=== PATIENT | male | born 1990 | race African-American/Black ===

== ENCOUNTER 2017-10-10 13:33 | Emergency (ER) | payer OTHER ==
[~2017-10-10] VITALS: Ht 182.9 cm; Wt 61.2 kg
[2017-10-10 16:51] LABS: ABSOLUTE NEUTROPHILS 4.5 thou/uL (1.4-8.2); BASOPHILS 0.4 % (0.0-2.0); EOSINOPHILS 0.8 % (0.0-3.0); HEMATOCRIT 34.9 % (42.0-52.0); HEMOGLOBIN 11.4 gm/dL (14.0-18.0); LYMPHOCYTES 9.2 % (24.0-44.0); MCH 22.1 pg (26.0-34.0); MCHC 32.8 g/dL (28.0-37.0); MCV 67.2 fL (80.0-100.0); MONOCYTES 10.5 % (1.0-8.0); PLATELET COUNT 317 thou/uL (150-400); POLYS 79.1 % (36.0-66.0); RBC 5.19 mil/uL (4.50-6.00); WBC 5.7 thou/uL (4.0-11.0)
[2017-10-10 17:03] LABS: CALCIUM 9.6 mg/dL (8.5-10.1); POTASSIUM 3.7 mmol/L (3.5-5.1)
[2017-10-10 17:09] LABS: ALBUMIN 3.2 g/dL (3.4-5.0); DIRECT BILIRUBIN 0.1 mg/dL (<0.1-0.3); MAGNESIUM 1.9 mg/dL (1.8-2.4); TOTAL BILIRUBIN 0.4 mg/dL (<0.1-1.0); TOTAL PROTEIN 8.6 g/dL (6.4-8.2)
[2017-10-10 17:30] LABS: URINE BLOOD NEGATIVE (Negative); URINE CLARITY CLEAR; URINE COLOR YELLOW; URINE GLUCOSE-RANDOM* NEGATIVE (Negative); URINE KETONES 1+ (Negative); URINE LEUKOCYTES-REFLEX NEGATIVE (Negative); URINE PROTEIN (DIPSTICK) TRACE (Negative); URINE UROBILINOGEN 0.2 E.U./dl (0.2-1.0)
[2017-10-10 17:35] LABS: URINE NITRITE-REFLEX POSITIVE (Negative)
[2017-10-10 17:36] LABS: ICTOTEST (BILI CONFIRMATORY) Negative (Negative); URINE BILIRUBIN NEGATIVE (Negative)
[2017-10-10 17:43] LABS: BACTERIA-REFLEX 1-9 Few /HPF (None Seen); CASTS None Seen /LPF (None Seen); CRYSTALS None Seen /LPF (None Seen); SQUAMOUS None Seen /LPF (0-3); URINE WBC-REFLEX None Seen /HPF (0-5)
[2017-10-10 17:44] LABS: URINE RBC None Seen /HPF (0-2)
[2017-10-10] MEDS ORDERED: KEFLEX500 M1 PO (17:50)
[2017-10-10 19:00] VITALS: BP 116/72
== END 2017-10-10 18:53 | disposition home or self-care (01) ==
LOC: ER 13:33
PROVIDERS: Emergency Medicine
DX: N39.0 Urinary tract infection, site not specified (principal); R11.2 Nausea with vomiting, unspecified; Z91.010 Allergy to peanuts

== ENCOUNTER 2017-10-13 18:52 | Inpatient (IN) | payer OTHER ==
[~2017-10-13] VITALS: Ht 182.9 cm; Wt 63.5 kg
--- NOTE | ~2017-10-13 | PATH ---
[facility] [place] [address] PATHOLOGY RPT PROCEDURE Name: CORINA CARRILLO Room #: 410-P ADM IN M.R.#: [id number] Admission: 10/13/17 Date of : 89 Discharge: Report #: [id number] Path Case #: [id number] [facility] Accession Number: [id number] . 01 Material submitted: . PART A: BX DUODENUM R/O CELIAC PART B: BX SIGMOID STRICTURE . 01 Clinical history: . Pre-OP DX: Crohn's possible Post-OP DX: Sigmoid stricture . 02 Diagnosis: A. Small bowel, duodenum rule out sprue, endoscopic biopsy: - No significant diagnostic abnormalities present. - Negative for villous blunting or increase in intraepithelial lymphocytes. . B. Large intestinal mucosa, "sigmoid stricture", endoscopic biopsy: - Moderate active colitis (please see comment). - Negative for dysplasia or malignancy. LBQ/10/19/2017 . 02 Comment: Sections of the colonic mucosa designated "sigmoid stricture" show foci of cryptitis along with a markedly cellular lamina propria composed predominantly of lymphocytes and plasma cells and occasional eosinophils. Surface ulceration is present focally. There are no crypt abscesses, granulomas or viral inclusions. The process affects all the fragments with a similar intensity. Given the description, the differential diagnosis includes acute colitis of self-limited nature, acute colitis of infectious etiology, and inflammatory bowel disease, acute diverticulitis, as well as acute colitis due to medications. Architectural abnormalities are not identified. Please correlate with clinical as well as endoscopic findings. (IUV:db; 10/19/2017) . 02 Electronically signed: . Ariana Taveras MD, Pathologist NPI- [id number] . 01 Gross description: . A. Received in formalin labeled "Corina Carrillo, BX duodenum, rule out celiac," are 2 segments of hdez soft tissue measuring 0.7 x 0.2 x 0.2 cm in aggregate dimensions and ranging from 0.3 to 0.4 cm in maximum dimension. The specimen is submitted entirely in cassette A1[place] [address] PATHOLOGY RPT PROCEDURE Name: CORINA CARRILLO JEANE Room #: 410-P [facility] IN M.R.#: [id number] Admission: 10/13/17 Date of : 89 Discharge: Report #: [id number] Path Case #: [id number] B. Received in formalin labeled "Lorena, Armonte, BX sigmoid stricture," are 7 segments of hdez soft tissue measuring 2.0 x 1.2 x 0.2 cm in aggregate dimensions and ranging from 0.1 to 0.5 cm in maximum dimension. The specimen is submitted entirely in cassette B1. (TSD; 10/18/2017) TOB/TOB . 02 CPT . 621807, [id number] Performed at: [address], [place] [id number] MD Jorge Delgado MD Phone: [phone] Performed at: [address] [id number] MD Ariana Taveras MD Phone: [phone]
--- NOTE | ~2017-10-13 | HC ---
[facility] [address] [place] [address] CONSULTATION Name: CORINA VILLATORO Room #: 410-P ADM IN M.R.#: [id number] Admission: 10/13/17 Attend Phys: Tim Vail MD Discharge: Date of : 89 Report #: [id number] THIS REPORT FOR: //name// CC: [facility] physician/PCP Hospital Chart Tim Vail HISTORY OF PRESENT ILLNESS: The patient is a pleasant -Gabonese male who I have been asked to see for further evaluation of his small-bowel obstruction. This is a 27-year-old who approximately 2-3 years ago had a similar experience and was evaluated at [facility] at which time a colonoscopy was performed to exclude Crohn's disease and was apparently normal. He was discharged at that time and had done fairly well until a couple of months ago when he represented to the Emergency Room and was given empiric steroids and asked to follow up with his primary doctor. He represents now with increasing nausea and vomiting after tapering off the steroids without instruction from a physician. There is evidence of bowel obstruction on a CT scan in the region of the distal ileum a couple feet from the ileocecal junction. PAST MEDICAL HISTORY: Otherwise notable for allergies to COCONUT and PEANUTS. He denies other medical history. SOCIAL HISTORY: He denies significant alcohol or tobacco consumption, but does admit to some marijuana use. MEDICATIONS: He takes no medicines at home. REVIEW OF SYSTEMS: Negative for weight loss, weakness or fatigue. He denies head, eyes, ears, nose or throat complaints. Denies chest pain, chest palpitation, chest pressure, cough, shortness of breath, wheezing, genitourinary, musculoskeletal or neuropsychiatric complaints beyond that mentioned above. PHYSICAL EXAMINATION: VITAL SIGNS: Afebrile, vital signs stable. HEENT: Nonicteric. NECK: No JVD, thyromegaly or bruits. CARDIOVASCULAR: Regular. LUNGS: Clear. ABDOMEN: Soft, nondistended, nontender, normoactive bowel sounds. No hepatosplenomegaly. No stigmata of chronic liver disease. No abnormal masses or bruits. EXTREMITIES: No clubbing, cyanosis or edema. NEUROLOGIC: Not performed. RECTAL: Deferred. LABORATORY DATA: White count 6.2, hemoglobin 11.5, MCV 67.1, platelet count [address] [address] CONSULTATION Name: CORINA VILLATORO Room #: 410-P [facility] IN M.R.#: [id number] Admission: 10/13/17 Attend Phys: Tim Vail MD Discharge: Date of : 89 Report #: [id number] 358. Chemistry: Chloride 96, venous bicarbonate 28, glucose 114. Normal liver tests, albumin 3.3, total protein 8.8. CT reveals abdomen and pelvis, evidence of small-bowel obstruction with transition zone in the distal ileum, some reactive fluid present in the pelvis. ASSESSMENT AND PLAN: In summary, the patient has what appears to be recurrent small bowel process causing obstruction, currently most likely Crohn's disease. He had a colonoscopy approximately 2 years ago per his history suggesting no significant diagnosis. Because ileocecal Crohn's is common with small bowel Crohn's, repeat colonoscopy is recommended, which we will proceed with on Wednesday. Until then, I agree with clear liquids and a bowel prep. In addition, ordering inflammatory bowel disease serology is recommended. If indeed his colonoscopy is nondiagnostic, perhaps diagnostic laparoscopy will be indicated. I appreciate the opportunity to participate in the care of this nice man. <ELECTRONICALLY SIGNED> By: Srinivas Reece MD 10/17/17 0937 [id number] Srinivas Reece MD /nt
[~2017-10-13 18:52] MED LIST: KEFLEX500 M1 PO
[2017-10-13 19:11] LABS: URINE BLOOD NEGATIVE (Negative); URINE CLARITY CLEAR; URINE COLOR YELLOW; URINE GLUCOSE-RANDOM* NEGATIVE (Negative); URINE KETONES 1+ (Negative); URINE LEUKOCYTES-REFLEX NEGATIVE (Negative); URINE NITRITE-REFLEX NEGATIVE (Negative); URINE PROTEIN (DIPSTICK) TRACE (Negative); URINE SPECIFIC GRAVITY 1.025 (1.005-1.035); URINE UROBILINOGEN 0.2 E.U./dl (0.2-1.0)
[2017-10-13 19:12] LABS: ICTOTEST (BILI CONFIRMATORY) Negative (Negative); URINE BILIRUBIN NEGATIVE (Negative)
[2017-10-13 19:25] VITALS: BP 123/76
[2017-10-13 19:49] LABS: ABSOLUTE NEUTROPHILS 5.1 thou/uL (1.4-8.2); BASOPHILS 0.5 % (0.0-2.0); EOSINOPHILS 1.3 % (0.0-3.0); HEMATOCRIT 35.3 % (42.0-52.0); HEMOGLOBIN 11.5 gm/dL (14.0-18.0); MCH 21.9 pg (26.0-34.0); MCHC 32.6 g/dL (28.0-37.0); MCV 67.1 fL (80.0-100.0); MONOCYTES 7.3 % (1.0-8.0); PLATELET COUNT 358 thou/uL (150-400); POLYS 82.9 % (36.0-66.0); RBC 5.27 mil/uL (4.50-6.00); RDW 14.8 % (10.5-14.5); WBC 6.2 thou/uL (4.0-11.0)
[2017-10-13 19:58] LABS: CREATININE 0.9 mg/dL (0.7-1.3); POTASSIUM 3.6 mmol/L (3.5-5.1)
[2017-10-13 20:05] LABS: ALBUMIN 3.3 g/dL (3.4-5.0); TOTAL BILIRUBIN 0.4 mg/dL (<0.1-1.0); TOTAL PROTEIN 8.8 g/dL (6.4-8.2)
[2017-10-13 20:17] LABS: ANISOCYTOSIS 1+; BURR CELLS OCCASIONAL; HYPOCHROMASIA 2+; MICROCYTES 1+; TARGET CELLS OCCASIONAL
[2017-10-13 20:29] VITALS: BP 123/76
[2017-10-13 21:06] VITALS: BP 109/68
[2017-10-13 21:38] VITALS: BP 109/68
[2017-10-14 04:43] VITALS: BP 116/74
[2017-10-14 08:37] VITALS: BP 115/77
[2017-10-14 16:01] VITALS: BP 127/78
[2017-10-14 20:00] VITALS: BP 112/69
[2017-10-15 03:14] LABS: HEMATOCRIT 36.6 % (42.0-52.0); HEMOGLOBIN 11.5 gm/dL (14.0-18.0); MCH 21.5 pg (26.0-34.0); MCHC 31.4 g/dL (28.0-37.0); MCV 68.2 fL (80.0-100.0); RBC 5.36 mil/uL (4.50-6.00); RDW 14.9 % (10.5-14.5); WBC 7.3 thou/uL (4.0-11.0)
[2017-10-15 03:17] LABS: CALCIUM 8.6 mg/dL (8.5-10.1); CREATININE 0.8 mg/dL (0.7-1.3); POTASSIUM 4.2 mmol/L (3.5-5.1)
[2017-10-15 04:00] VITALS: BP 113/75
[2017-10-15 08:57] VITALS: BP 124/71
[2017-10-15 16:35] VITALS: BP 123/87
[2017-10-15 19:31] VITALS: BP 127/90
[2017-10-16 04:09] VITALS: BP 106/65
[2017-10-16 07:53] VITALS: BP 126/74
[2017-10-16 15:23] VITALS: BP 127/82
[2017-10-16 21:05] VITALS: BP 133/78
[2017-10-17 03:52] VITALS: BP 118/64
[2017-10-17 07:51] VITALS: BP 119/82
[2017-10-17 10:13] LABS: ABSOLUTE NEUTROPHILS 4.5 thou/uL (1.4-8.2); BASOPHILS 0.3 % (0.0-2.0); EOSINOPHILS 0.1 % (0.0-3.0); HEMATOCRIT 33.7 % (42.0-52.0); LYMPHOCYTES 3.1 % (24.0-44.0); MCH 21.8 pg (26.0-34.0); MCHC 32.6 g/dL (28.0-37.0); MCV 66.9 fL (80.0-100.0); MONOCYTES 8.1 % (1.0-8.0); PLATELET COUNT 293 thou/uL (150-400); POLYS 88.4 % (36.0-66.0); RBC 5.05 mil/uL (4.50-6.00); RDW 14.8 % (10.5-14.5)
[2017-10-17 10:18] LABS: CALCIUM 8.2 mg/dL (8.5-10.1); POTASSIUM 3.4 mmol/L (3.5-5.1)
[2017-10-17 17:34] VITALS: BP 137/87
[2017-10-17 20:00] VITALS: BP 117/69
[2017-10-18 04:00] VITALS: BP 114/70
[2017-10-18 07:12] VITALS: BP 113/67
[2017-10-18 13:56] VITALS: BP 107/85
[2017-10-18 14:51] VITALS: BP 111/59
[2017-10-18 20:00] VITALS: BP 98/53
[2017-10-18 23:35] VITALS: BP 107/68
[2017-10-19 03:38] VITALS: BP 121/72
[2017-10-19 07:08] VITALS: BP 102/64
[2017-10-19 15:25] VITALS: BP 102/58
[2017-10-19 20:13] VITALS: BP 108/59
[2017-10-20 03:51] VITALS: BP 123/68
[2017-10-20 07:36] VITALS: BP 117/58
[2017-10-20 15:08] VITALS: BP 160/71
[2017-10-20 20:00] VITALS: BP 109/66
[2017-10-21 02:42] VITALS: BP 112/71
[2017-10-21 04:00] VITALS: BP 108/58
[2017-10-21 08:50] VITALS: BP 120/81
[2017-10-21 16:24] VITALS: BP 113/75
[2017-10-21 20:00] VITALS: BP 110/69
[2017-10-22 04:00] VITALS: BP 116/82
[2017-10-22 08:03] VITALS: BP 107/60
[2017-10-22] MEDS ORDERED: PREDNISONE 20 M20 M1 PO (15:28)
[2017-10-22] MEDS ORDERED: PEPCID20 MG PO (15:28)
[2017-10-22 16:18] VITALS: BP 107/60
[2017-10-23] MEDS ORDERED: NORCO 5-325 TA1 EACH PO (20:16)
== END 2017-10-22 18:18 | disposition home or self-care (01) | DRG 386 ==
LOC: ER 18:52 → 4N 20:06 → EROBS 20:06 → 4N 21:06
PROVIDERS: Hospitalist; Internal Medicine Gastroenterology; Nurse Practitioner Family
PROC: 0DBN8ZX Excision of Sigmoid Colon, Via Natural or Artificial Opening Endoscopic, Diagnostic (ICD-10-PCS; principal; 2017-10-18)
PROC: 0DB98ZX Excision of Duodenum, Via Natural or Artificial Opening Endoscopic, Diagnostic (ICD-10-PCS; principal; 2017-10-18)
DX: K50.812 Crohn's disease of both small and large intestine with intestinal obstruction (principal); N39.0 Urinary tract infection, site not specified; F32.9 Major depressive disorder, single episode, unspecified; Z91.010 Allergy to peanuts; Z91.018 Allergy to other foods
CPT/HCPCS: 10091; 62110; 62900

== ENCOUNTER 2017-10-23 17:27 | Inpatient (IN) | payer OTHER ==
[~2017-10-23] VITALS: Ht 182.9 cm; Wt 64.8 kg
--- NOTE | ~2017-10-23 | HC ---
[facility] [address] [place] [address] CONSULTATION Name: CORINA VILLATORO Room #: 427-P ADM IN M.R.#: [id number] Admission: 10/23/17 Attend Phys: Howard Teixeira MD Discharge: Date of : 89 Report #: [id number] THIS REPORT FOR: //name// CC: Rick GLOVER physician/PCP Caleb Crowell MD REASON FOR CONSULTATION: The patient is a 27-year-old male with history of Crohn's disease who was discharged 2 days ago from [facility] who represented last evening with protracted nausea and vomiting. HISTORY OF PRESENT ILLNESS: This 27-year-old male has a history of Crohn disease, which dates back at least 2-3 years. He received health care at [facility] the [place] and had previous colonoscopy and upper endoscopy, which were apparently normal. However, in recent months, he has had symptoms of abdominal pain, nausea, vomiting. He has been placed on steroids and had been tapered off steroids with the current symptoms. He was admitted to this institution on the [address] was suggestive of small-bowel obstruction. He had a flexible sigmoidoscopy, which revealed a colonic stricture, which was biopsied and consistent with inflammatory disease and non-malignancy. He was treated with IV steroids. His symptoms improved and time of discharge 2 days ago, he reports that he was eating without nausea, vomiting. Diarrhea was controlled. He had minimal abdominal pain. However, reports he went home, he took his dose of steroids yesterday morning, but last evening had 7 episodes of nonbloody emesis and presented to the Emergency Room at [facility]. He had a CT, which was similar to previous CT suggesting small-bowel obstruction. Since last night, however, he has not had any further nausea, vomiting. During the night reports he had 7 stools. His abdominal pain although not resolved is improved. He has not had any fever or chills. PAST MEDICAL HISTORY: He reports that he has been in good health. PAST SURGICAL HISTORY: None. ALLERGIES: PEANUTS and COCONUT. HOME MEDICINES: Prednisone 40 mg daily on a tapering schedule, [place] 5/325 one to two every 6 hours as needed, famotidine 20 mg daily. FAMILY HISTORY: No family history of Crohn's disease or colon cancer. 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 He does not smoke or consume alcohol. [facility] [address] [place] [address] CONSULTATION Name: CORINA VILLATORO Room #: 427-P [facility] IN [facility].#: [id number] Admission: 10/23/17 Attend Phys: Howard Teixeira MD Discharge: Date of : 89 Report #: [id number] REVIEW OF SYSTEMS: GENERAL: He has lost about 5 pounds with his recent illnesses. He did have some chills and vomiting, but no fever. CENTRAL NERVOUS SYSTEM: No weakness, numbness, loss of consciousness, seizure, strokes. ENT: No change in vision or sores in the mouth. PULMONARY: No cough, pneumonia or tuberculosis. CARDIOVASCULAR: No chest pain, chest tightness or palpitations. GASTROINTESTINAL: Nausea and vomiting as noted above. Also diarrhea. He has not had any rectal bleeding. GENITOURINARY: He was treated recently for urinary tract infection. No history of kidney stones. MUSCULOSKELETAL: No arthralgias or myalgias. SKIN: Without rash. PSYCHIATRIC: No depression, anxiety or bipolar illness. ENDOCRINE: He is not aware of hormonal problems, diabetes or thyroid disease. HEMATOLOGIC: No bleeding, bruising or malignancies. PHYSICAL EXAMINATION: GENERAL: The patient is a well-developed, well-nourished, thin male who is awake, alert and oriented, no acute distress. He appears comfortable in bed. VITAL SIGNS: Blood pressure 111/74, pulse rate is 61. HEENT: Anicteric. Pupils are equal and round. Oropharynx clear. NECK: Supple. CHEST: Clear. HEART: Regular rate and rhythm, normal S1, S2. ABDOMEN: Soft. He does have active bowel sounds. He does have moderate tenderness in the suprapubic region. No rebound or rigidity. RECTAL: Not done at this time. EXTREMITIES: Without cyanosis, clubbing, edema. NEUROLOGIC: Oriented to person, place, and time. Moves all 4 extremities well. LABORATORY DATA: White count of 4.8, hemoglobin 9.8, MCV of 66.5, platelet count of 303,000. Electrolytes unremarkable. Creatinine 0.6. BUN of 11. Lactic acid last night was 1.8, calcium 8.1. Liver function studies are all normal. Albumin diminished at 2.8. ASSESSMENT: 1. Crohn's disease with recurrent obstructive symptoms. 2. Colonic stricture. 3. Nausea, vomiting improved. COMMENT: The patient with recurrent symptomatology. He has been started on IV push Solu-Medrol. Ultimately, management may be difficult as the patient does not have any insurance coverage. [facility] [address] [place] [address] CONSULTATION Name: CORINA VILLATORO Room #: 427-P ADM IN M.R.#: [id number] Admission: 10/23/17 Attend Phys: Howard Teixeira MD Discharge: Date of : 89 Report #: [id number] RECOMMENDATIONS: 1. Agree with IV steroids. 2. Check TB serology. 3. When able to resume oral intake, the patient will need iron. <ELECTRONICALLY SIGNED> By: Stalin Khan MD 10/25/17 1100 1004 1411 Stalin Khan MD /nt
[~2017-10-23 17:27] MED LIST changes: +PEPCID20 MG PO; +PREDNISONE 20 M20 M1 PO
[2017-10-23 17:37] VITALS: BP 116/74
[2017-10-23 18:09] LABS: ANION GAP 4 mmol/L (7-16); BUN 12 mg/dL (7-18); CALCIUM 8.8 mg/dL (8.5-10.1); CHLORIDE 103 mmol/L (98-107); CO2 29 mmol/L (21-32); CREATININE 0.7 mg/dL (0.7-1.3); GLUCOSE 79 mg/dL (74-106); POTASSIUM 3.9 mmol/L (3.5-5.1); SODIUM 136 mmol/L (136-145)
[2017-10-23 18:15] LABS: ALBUMIN 2.8 g/dL (3.4-5.0); DIRECT BILIRUBIN < 0.1 mg/dL (<0.1-0.3); LIPASE 126 U/L (73-393); SGOT 19 U/L (15-37); SGPT 23 U/L (30-65); TOTAL BILIRUBIN 0.2 mg/dL (<0.1-1.0); TOTAL PROTEIN 7.4 g/dL (6.4-8.2)
[2017-10-23 18:48] LABS: HEMATOCRIT 33.5 % (42.0-52.0); HEMOGLOBIN 10.8 gm/dL (14.0-18.0); MCH 21.4 pg (26.0-34.0); MCHC 32.3 g/dL (28.0-37.0); MCV 66.4 fL (80.0-100.0); PLATELET COUNT 340 thou/uL (150-400); RBC 5.05 mil/uL (4.50-6.00); RDW 15.1 % (10.5-14.5)
[2017-10-23 19:10] LABS: ABSOLUTE NEUTROPHILS 5.4 thou/uL (1.4-8.2); PLATELET ESTIMATE NORMAL
[2017-10-23 19:11] LABS: ANISOCYTOSIS SLIGHT; HYPOCHROMASIA 2+; MICROCYTES 2+; OVALOCYTES OCCASIONAL; POIKILOCYTOSIS SLIGHT
[2017-10-23 20:14] LABS: URINE BILIRUBIN NEGATIVE (Negative); URINE BLOOD NEGATIVE (Negative); URINE CLARITY CLEAR; URINE COLOR YELLOW; URINE GLUCOSE-RANDOM* NEGATIVE (Negative); URINE KETONES NEGATIVE (Negative); URINE LEUKOCYTES NEGATIVE (Negative); URINE NITRITE NEGATIVE (Negative); URINE PROTEIN (DIPSTICK) NEGATIVE (Negative); URINE UROBILINOGEN 0.2 E.U./dl (0.2-1.0)
[2017-10-23] MEDS ORDERED: NORCO 5-325 TA1 EACH PO (20:16)
[2017-10-23 20:17] VITALS: BP 111/72
[2017-10-23 20:54] VITALS: BP 108/72
[2017-10-24 01:40] VITALS: BP 129/83
[2017-10-24 05:15] VITALS: BP 111/74
[2017-10-24 06:53] LABS: HEMATOCRIT 30.3 % (42.0-52.0); HEMOGLOBIN 9.8 gm/dL (14.0-18.0); MCH 21.5 pg (26.0-34.0); MCHC 32.4 g/dL (28.0-37.0); MCV 66.5 fL (80.0-100.0); RBC 4.55 mil/uL (4.50-6.00); RDW 15.1 % (10.5-14.5); WBC 4.8 thou/uL (4.0-11.0)
[2017-10-24 07:03] LABS: CALCIUM 8.1 mg/dL (8.5-10.1); CREATININE 0.6 mg/dL (0.7-1.3); POTASSIUM 3.8 mmol/L (3.5-5.1)
[2017-10-24 14:00] VITALS: BP 131/74
[2017-10-24 16:30] VITALS: BP 105/66
[2017-10-24 19:35] VITALS: BP 105/56
[2017-10-25 03:57] LABS: HEMATOCRIT 35.7 % (42.0-52.0); HEMOGLOBIN 11.6 gm/dL (14.0-18.0); MCH 21.7 pg (26.0-34.0); MCHC 32.5 g/dL (28.0-37.0); MCV 66.7 fL (80.0-100.0); RBC 5.35 mil/uL (4.50-6.00); RDW 15.2 % (10.5-14.5); WBC 6.3 thou/uL (4.0-11.0)
[2017-10-25 03:59] LABS: ALBUMIN 2.5 g/dL (3.4-5.0); CALCIUM 8.3 mg/dL (8.5-10.1); CREATININE 0.7 mg/dL (0.7-1.3); POTASSIUM 4.3 mmol/L (3.5-5.1); TOTAL BILIRUBIN 0.3 mg/dL (<0.1-1.0); TOTAL PROTEIN 6.8 g/dL (6.4-8.2)
[2017-10-25 04:30] VITALS: BP 125/73
[2017-10-25 04:36] VITALS: BP 111/76
[2017-10-25 07:44] VITALS: BP 116/76
[2017-10-25 15:29] VITALS: BP 118/88
[2017-10-25 19:51] VITALS: BP 108/72
[2017-10-26 04:07] VITALS: BP 122/77
[2017-10-26 04:08] VITALS: BP 122/77
[2017-10-26 07:19] VITALS: BP 113/72
[2017-10-26 16:32] VITALS: BP 128/82
[2017-10-26 19:31] VITALS: BP 129/71
[2017-10-27 03:33] VITALS: BP 126/75
[2017-10-27] MEDS ORDERED: NORCO 5-325 TA1 EACH PO (16:34)
[2017-10-27 19:32] VITALS: BP 126/75
[2017-10-27 20:06] VITALS: BP 126/75
[2017-10-28 08:07] LABS: T-SPOT.TB Negative
== END 2017-10-27 20:19 | disposition home or self-care (01) | DRG 386 ==
LOC: ER 17:27 → 4E 20:03 → EROBS 20:03 → 4E 20:55
PROVIDERS: Emergency Medicine; Hospitalist; Nurse Practitioner Family; Specialist
DX: K50.812 Crohn's disease of both small and large intestine with intestinal obstruction (principal); F32.9 Major depressive disorder, single episode, unspecified; Z79.1 Long term (current) use of non-steroidal anti-inflammatories (NSAID); Z79.899 Other long term (current) drug therapy; Z91.018 Allergy to other foods; Z91.010 Allergy to peanuts
CPT/HCPCS: 10084